=== PATIENT | female | born 2000 | race Caucasian/White ===

== ENCOUNTER 2023-01-14 08:24 | Emergency (ER) | payer OTHER, SELFPAY ==
[2023-01-14 08:37] VITALS: BP 121/92; PULSE 88; RESP 16; TEMP 36.7; O2SAT 100
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
== END 2023-01-14 08:57 | disposition home or self-care (01) ==
PROVIDERS: Emergency Provider Nurse Practitioner Family
DX: S06.0XAA Concussion with loss of consciousness status unknown, initial encounter (principal); V43.52XA Car driver injured in collision with other type car in traffic accident, initial encounter
CPT/HCPCS: 99212; G0463

== ENCOUNTER 2023-01-17 16:35 | Emergency (ER) | payer OTHER, SELFPAY ==
[2023-01-17 16:49] VITALS: BP 121/82; PULSE 99; RESP 18; TEMP 36.5; O2SAT 100
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
== END 2023-01-17 18:50 | disposition home or self-care (01) ==
PROVIDERS: Emergency Provider Physician Assistant
DX: G44.309 Post-traumatic headache, unspecified, not intractable (principal); F07.81 Postconcussional syndrome
CPT/HCPCS: 99282

== ENCOUNTER 2024-04-07 08:17 | Emergency (ER) | payer OTHER, SELFPAY ==
[2024-04-07 08:31] VITALS: BP 124/82; PULSE 97; RESP 18; TEMP 36.9; O2SAT 100
[2024-04-07 08:42] LABS: EDSTREPNEGPOS1 Negative (Negative)
--- NOTE | 2024-04-07 08:42 | ED_ITS ---
HPI - URI/Sore Throat General Chief Complaint: Upper Respiratory Infection Stated Complaint: FEVER/SORE THROAT/EARS/CONGESTION/CP Time Seen by Provider: 04/07/24 08:42 Source: patient Mode of arrival: ambulatory Limitations: no limitations History of Present Illness HPI Narrative: 23-year-old female presents with complaint of nasal congestion, cough, fatigue, sore throat, hoarse voice. Symptoms for 5-7 days. Has already completed 5 day antibiotic given to her by her doctor from [place]. Denies nausea vomiting. No chest pain or shortness of breath. Reports [id number] cough medication is not helping. Was up coughing all night. States that throat feels swollen and dry at night. All systems reviewed and negative except as noted above. Related Data Home Medications ?Medication ?Instructions ?Recorded ?Confirmed ?Last Taken ?Type desogestrel-ethinyl estradiol 0.1 1 tablet PO DAILY 04/07/24 Unknown History mg/0.125 mg/0.15 mg-25 mcg tablet Allergies Allergy/AdvReac Type Severity Reaction Status Date / Time No Known Allergies Allergy Verified 04/07/24 08:45 Review of Systems Review of Systems: CONSTITUTIONAL: Denies fever, chills, or sweats. Reports fatigue. EYES: Denies visual changes, redness, or discharge. ENT: Reports rhinorrhea, congestion, sore throat. Denies otalgia. CARDIOVASCULAR: Denies chest pain, palpitations, or edema. RESPIRATORY reports cough. Denies dyspnea. GASTROINTESTINAL: Denies abdominal pain, nausea, vomiting, or diarrhea. GENITOURINARY: Denies dysuria or hematuria. SKIN: Denies rash or itching. MUSCULOSKELETAL: Denies back pain, joint pain, or myalgia. NEUROLOGIC: Denies headache, numbness, or weakness. PSYCHIATRIC: Denies anxiety or depression. All other systems reviewed are negative, except as documented in HPI. [facility] Past Medical History Medical History (Updated 04/07/24 @ 08:48 by Vicenta Ware NP) No pertinent past medical history Comments At time of signature, agree with nursing past medical, surgical, social and family history. There is no relevant family history pertinent to the presenting complaint. Exam Narrative: GENERAL: This is a well-nourished, well-developed patient, ill-appearing but in no acute distress HEAD: normocephalic, atraumatic. EYES: PERRL. Sclera clear/white. Vision is grossly intact. EARS: External ears normal, auditory canals clear and without drainage, TMs normal without perforation. Hearing grossly intact. NOSE: External nose normal with mild congestion, clear nasal drainage THROAT: Mucous membranes moist, erythematous with mild swelling. No exudates. NECK: Neck supple, non-tender without lymphadenopathy, masses or thyromegaly. CARDIOVASCULAR: Regular rate and rhythm without murmurs, gallops, or rubs. RESPIRATORY: Clear to auscultation. Breath sounds equal bilaterally. No wheezes, rales, or rhonchi. SKIN: warm, Dry, intact with no suspicious lesions or rash, good texture and turgor. NEURO: awake, alert, and oriented to person, place and time. There were no obvious focal neurologic abnormalities. EXTREMITIES: No joint tenderness, effusion, or edema noted. Course Course Level of Care: Express Care Visit Vital Signs Vital signs: Vital Signs Temperature 36.9 C 04/07/24 08:31 Pulse Rate 97 04/07/24 08:31 Respiratory Rate 18 04/07/24 08:31 Blood Pressure 124/82 04/07/24 08:31 Pulse Oximetry 100 04/07/24 08:31 Temperature 36.9 C 04/07/24 08:31 Pulse Rate 97 04/07/24 08:31 Respiratory Rate 18 04/07/24 08:31 Blood Pressure 124/82 04/07/24 08:31 Pulse Oximetry 100 04/07/24 08:31 Reviewed MDM - URI/Sore Throat MDM Narrative Medical decision making narrative: Negative strep. Strep culture ordered. Patient's symptoms are viral. Will treat with Medrol Dosepak, benzonatate. Rheumatic med humidifier in bedroom with increased fluids. Please be advised this is a medical document. It is intended for [id number] communication. It is written in medical language and may contain unfamiliar abbreviations or verbiage. Medical documents are intended to carry relevant information, facts as evident, and the clinical opinion of the practitioner at the time of the encounter. This report may have been done utilizing a voice recognition system. Attempts have been made to correct errors. However, there may be uncorrected grammatical, spelling, and recognition errors present. The file time of this note does not necessarily represent the time of service. Differential Diagnosis Differential diagnosis: Likely upper respiratory infection, sinusitis, viral infection and pharyngitis Lab Data Labs: Lab Results 04/07/24 Range/Units 08:39 POC Grp A Strep Screen Negative (Negative) Discharge Plan Discharge Clinical Impression: Viral upper respiratory tract infection with cough Patient Disposition: Home, Self-Care Condition: Stable Instructions: Upper Respiratory Infection (ED) Additional Instructions: Your strep test was negative today. Your symptoms are viral and may last 10-14 days. Take medications as prescribed. Take Tylenol or ibuprofen every 6-8 hours as needed for pain and fever. Place a cool-mist humidifier in bedroom where you sleep. Follow-up with your doctor if symptoms are not improving. Patient Language: Norwegian Prescriptions: New benzonatate 200 mg capsule 200 mg PO TID PRN (Reason: cough) Qty: 20 0RF cetirizine 10 mg capsule 10 mg PO DAILY Qty: 30 0RF methylprednisolone [Medrol (A[place]rey)] 4 mg tablets,dose pack See Rx Instructions PO .COMPLEX Qty: 21 0RF Rx Instructions: orally per package directions No Action desogestrel-ethinyl estradiol 0.1/.125/.15-25 mg-mcg tablet 1 tablet PO DAILY Patient Comments: securgin Follow-up/Referrals: PHYSICIAN,STAFF DESIGN ENGINEER [Primary Care Provider] - Time of Disposition: 08:50
== END 2024-04-07 08:53 | disposition home or self-care (01) ==
PROVIDERS: Emergency Provider Nurse Practitioner Family
DX: J06.9 Acute upper respiratory infection, unspecified (principal); R05.9 Cough, unspecified
CPT/HCPCS: 87081; 87880; 99213; G0463